=== PATIENT | female | born 1955 | race Caucasian/White ===

== ENCOUNTER 2023-08-16 05:40 | Inpatient (IN) ==
--- NOTE | 2023-07-29 15:49 | PAT Medication Instructions ---
Medication Instructions Date of Service July 29, 2023 Home Medications alendronate 70 mg tablet 70 mg PO WK atorvastatin 40 mg tablet (Lipitor) 40 mg PO HS calcium carbonate 500 mg-vitamin D3 3.125 mcg (125 unit) tablet 1 tab PO DAILY ibuprofen 200 mg capsule 200 mg PO Q6H PRN Pain levothyroxine 75 mcg tablet (Synthroid) 75 mcg PO PM omeprazole magnesium 20 mg tablet,delayed release (Prilosec OTC) 20 mg PO QAM oxycodone 5 mg capsule 5 mg PO TID Continue as directed alendronate 70 mg tablet 70 mg PO WK ASK your surgeon for instructions ibuprofen 200 mg capsule 200 mg PO Q6H PRN Pain DO NOT take the morning of surgery calcium carbonate 500 mg-vitamin D3 3.125 mcg (125 unit) tablet 1 tab PO DAILY Take morning of surgery With a small sip of water, OTHERWISE NOTHING TO EAT OR DRINK AFTER MIDNIGHT: omeprazole magnesium 20 mg tablet,delayed release (Prilosec OTC) 20 mg PO QAM oxycodone 5 mg capsule 5 mg PO TID Take evening before surgery atorvastatin 40 mg tablet (Lipitor) 40 mg PO HS evothyroxine 75 mcg tablet (Synthroid) 75 mcg PO PM oxycodone 5 mg capsule 5 mg PO TID Other Notes If you have any questions please call us at [phone] or [phone] or [phone] or [phone]
--- NOTE | 2023-08-04 12:20 | Anesthesiology Consultation ---
Date of Service August 04, 2023 Assessment & Plan (1) Encounter for pre-operative examination: - Infectious disease screening: Per assessment on 08/04/23: No known infectious disease contacts or current infectious disease symptoms. No noted recent Covid positive test result. - Awaiting surgeon-ordered PCP preop evaluation and preop CXR (Dr. Solorzano, appt/CXR done 08/03). Patient otherwise acceptable risk for surgery. Chart Review Chart Review: Patient seen in Pre Admission Testing Teaching & Discussion Pre-Anesthesia Teaching/Discussion Notes: Instructed NPO after midnight before surgery,except medications with 15 cc of water. Medication instructions provided according to the PAT guidelines. History Surgery Operation Date: 08/16/23 07:45 Proposed Procedures p L5-S1 Decompression and Fusion, Possible L4-L5, Spinal Cord Monitoring - George Dalal DO Height/Weight Height: 5 ft 4.5 in Weight: 70.3 kg Allergies Allergy/AdvReac Type Severity Reaction Status Date / Time No Known Allergies Allergy Verified 07/29/23 11:54 Medications Home Medications Medication Instructions Recorded Confirmed Last Taken alendronate 70 mg tablet 70 mg PO WK 07/29/23 07/29/23 Unknown atorvastatin 40 mg tablet (Lipitor) 40 mg PO HS 07/29/23 07/29/23 Unknown calcium carbonate 500 mg-vitamin 1 tab PO DAILY 07/29/23 07/29/23 Unknown D3 3.125 mcg (125 unit) tablet ibuprofen 200 mg capsule 200 mg PO Q6H PRN Pain 07/29/23 07/29/23 Unknown levothyroxine 75 mcg tablet 75 mcg PO PM 07/29/23 07/29/23 Unknown (Synthroid) omeprazole magnesium 20 mg 20 mg PO QAM 07/29/23 07/29/23 Unknown tablet,delayed release (Prilosec OTC) oxycodone 5 mg capsule 5 mg PO TID 07/29/23 07/29/23 Unknown Past Medical History Medical History Arthritis Chronic back pain Degenerative disc disease GERD (gastroesophageal reflux disease) History of COVID-2020 Hyperlipidemia Hypothyroidism Kidney stones hx, no recent issues Neuropathy left foot Osteoporosis Sciatic leg pain Spinal stenosis Exercise / Class Metabolic Activity II 4-5 Yardwork/Stairs/Walk up hill Past Family History Family History Brother Diabetes Brother Diabetes Sister Diabetes Sister Diabetes Past Surgical History Surgical History History of appendectomy History of breast biopsy benign History of cardiac cath 2012- no stents History of carpal tunnel release R/L History of cholecystectomy History of colonoscopy History of esophagogastroduodenoscopy (EGD) History of hysterectomy History of lithotripsy History of tooth extraction Nausea and vomiting after administration of anesthetic agent Single episode with lap najma S/P cervical spinal fusion Cervical flexion limitation, remaining ROM "good" per patient Past Anesthesia History No Hx of Anesthesia Complications and No Family Hx of Anesthesia Complications History of PONV No Hx of Motion Sickness and History of PONV (Single episode with lap najma) Social History Smoking Status: Current every day smoker Smoking cigarettes per day: 10 cigs/day Do You Dip or Chew Tobacco: No Hx Alcohol Use: No Hx Substance Use: No substance use type: former substance user Review of Systems Patient denies chest pain, shortness of breath, dyspnea on exertion, fever, chills, cough, wheezing, palpitations. Physical Exam Vital Signs VITALS BP 106/71 P 80 TEMP 98.7 SP02 95%RA RESP 16 PHYSICAL Mildly decreased cervical extension range of motion. Full TMJ range of motion. TMD 3 finger breaths Mallampati Score 2 Dentition: edentulous, upper/lower dentures Lungs: clear throughout to auscultation Cardiac: regular rate and rhythm, no murmurs noted Spine: normal Carotid arteries: negative bruit Extremities: no LE edema Lab Results Anesthesia Preop Results Results Anesthesia Widget: Blood Type O Negative 08/04/23 Antibody Screen NEGATIVE 08/04/23 Testing Laboratory Results 08/03/23 WBC 7.02 H/H 12.4/38.2 PLATELETS 330 SODIUM 141 POTASSIUM 3.6 CHLORIDE 108 CO2 26 BUN 19 CREATININE 0.80 GLUCOSE 84 PT 10.9 PTT 31.0 INR 0.97 UA negative (urine culture pending) Electrocardiogram Date: 08/04/23 NSR at 76bpm. Diffuse minor NS TWA.
[2023-08-16] MEDS ORDERED: MIDAZOLAM HCL 1 MG/ML 2ML VIAL ONE (06:38)
[2023-08-16] MEDS ORDERED: PROPOFOL IV EMULSION 10 MG/ML 20 ML VIAL IV ONE (06:38)
[2023-08-16] MEDS ORDERED: ROCURONIUM BROMIDE 10 MG/ML 5 ML VIAL IV ONE (06:38)
[2023-08-16] MEDS ORDERED: fentaNYL citrate PF 100 MCG/2 ML VIAL ONE (06:38)
[2023-08-16] MEDS ORDERED: LIDOCAINE 2% 2 ML VIAL/AMP(20MG/ML) INFIL ONE (06:38)
[2023-08-16] MEDS ORDERED: DEXAMETHASONE SOD INJ 4 MG/ML VIAL ONE (06:38)
[2023-08-16] MEDS ORDERED: ONDANSETRON INJ 2 MG/ML 2 ML VIAL ONE ×2 (06:38→09:35)
[2023-08-16] MEDS: LR 15ML/HR IV SCH (06:42)
[2023-08-16] MEDS: GABAPENTIN 300 MG CAP PO SCH (06:42)
[2023-08-16] MEDS: ACETAMINOPHEN 500 MG TAB PO SCH (06:42)
[2023-08-16] MEDS: CeleBREX 200 MG CAP PO SCH (06:42)
[2023-08-16] MEDS: LR 60ML/HR IV SCH (06:42)
[2023-08-16] MEDS ORDERED: SUGAMMADEX SODIUM 200 MG/2 ML VIAL IV ONE ×2 (07:14→09:57)
--- NOTE | 2023-08-16 07:43 | History & Physical Bridge Note ---
Date of Service August 16, 2023 History & Physical Bridge Note I have examined the patient, reviewed the History & Physical and in the interval since the performance of the History & Physical I have noted the following changes of clinical significance: no changes noted
--- NOTE | 2023-08-16 07:44 | History & Physical Report ---
Date of Service August 16, 2023 Assessment & Plan (1) Neurogenic claudication due to lumbar spinal stenosis: Plan: L5-S1 decompression and fusion possible L4-L5 History of Present Illness Chief Complaint: Back and leg pain Primary Care Provider: NO PCP This is a 67 female presents for chronic persistent back and leg pain after an extensive course of nonoperative care is here for surgical invention. Allergies Allergy/AdvReac Type Severity Reaction Status Date / Time No Known Allergies Allergy Verified 08/16/23 06:17 Home Medications Medication Instructions Recorded Confirmed Type alendronate 70 mg tablet 70 mg PO WK 07/29/23 08/16/23 History atorvastatin 40 mg tablet (Lipitor) 40 mg PO HS 07/29/23 08/16/23 History calcium carbonate 500 mg-vitamin 1 tab PO DAILY 07/29/23 08/16/23 History D3 3.125 mcg (125 unit) tablet ibuprofen 200 mg capsule 200 mg PO Q6H PRN Pain 07/29/23 08/16/23 History levothyroxine 75 mcg tablet 75 mcg PO PM 07/29/23 08/16/23 History (Synthroid) omeprazole magnesium 20 mg 20 mg PO QAM 07/29/23 08/16/23 History tablet,delayed release (Prilosec OTC) oxycodone 5 mg capsule 5 mg PO TID 07/29/23 08/16/23 History Past Med/Surg History Medical History Arthritis Chronic back pain Degenerative disc disease GERD (gastroesophageal reflux disease) History of COVID-2020 Hyperlipidemia Hypothyroidism Kidney stones hx, no recent issues Neuropathy left foot Osteoporosis Sciatic leg pain Spinal stenosis Surgical History History of appendectomy History of breast biopsy benign History of cardiac cath 2012- no stents History of carpal tunnel release R/L History of cholecystectomy History of colonoscopy History of esophagogastroduodenoscopy (EGD) History of hysterectomy History of lithotripsy History of tooth extraction Nausea and vomiting after administration of anesthetic agent Single episode with lap najma S/P cervical spinal fusion Cervical flexion limitation, remaining ROM "good" per patient Family History Brother Diabetes Brother Diabetes Sister Diabetes Sister Diabetes Social History Smoking Status: Current every day smoker Tobacco Type: Cigarettes Cigarettes Per Day: 10 cigs/day; Second Hand Exposure: No; Do You Dip or Chew Tobacco: No; Tobacco Cessation Education Requested by Patient: No Hx Alcohol Use: No Hx Substance Use: No Preferred Language: Albanian Communication Ability: Effective Prototyper Required: No Beliefs That Will Affect Care: None Current Living Situation: Family Other Information That Helps Us Care for You: No Feels Safe at Home: Yes Safety Concerns: Feels Safe At This Time Assistive Devices: Denture - Upper, Denture - Lower and Glasses Physical Exam Physical Exam: Patient is alert and oriented Heart regular rhythm Lungs clear Results & Data Results & Data Vital Signs (Past 12 Hours) Vital Signs Temp Pulse Resp BP Pulse Ox O2 Del Method 08/16/23 06:25 36.8 C 77 18 144/73 H 97 Room Air
[2023-08-16] MEDS: ceFAZolin 2000MG 2,000 MG/15 ML SYR IV SCH ×2 (07:53→15:56)
[2023-08-16] MEDS: ceFAZolin 330 MG/ML 1 GM VIAL ONE (08:33)
[2023-08-16] MEDS: BUPIVACAINE/EPINEPHRINE 0.5% MPF 1:200,000 30 ML VIAL ONE (08:33)
[2023-08-16] MEDS ORDERED: ePHEDrine sulfate 50 MG/5 ML SYR ONE (08:40)
[2023-08-16] MEDS ORDERED: ONDANSETRON INJ 2 MG/ML 2 ML VIAL IV PRN ×2 (09:04→13:00)
[2023-08-16] MEDS ORDERED: ePHEDrine sulfate 50 MG/ML AMP IV PRN (09:04)
[2023-08-16] MEDS ORDERED: HYDROmorphone INJ 1 MG/ML SYRINGE IV PRN ×2 (09:04→13:00)
[2023-08-16] MEDS ORDERED: ATROPINE SULFATE 0.1 MG/ML 10ML SYR IV PRN (09:04)
[2023-08-16] MEDS: FLOSEAL HEMOSTATIC MATRIX 10ML TOP ONE (09:29)
--- NOTE | 2023-08-16 09:43 | Operative Report ---
Post Operative Report Pre & Post Diagnosis Operation Date: 08/16/23 07:45 Pre-Op Diagnosis: Neurogenic Claudication due to Lumbar Spinal Stenosis Spondylolisthesis L5-S1 Post-Op Diagnosis: Same I identified the patient and participated in the time-out.: Yes Procedure Operation Date: 08/16/23 07:45 Actual Procedures #1 lumbar decompression bilaterally facetectomies and foraminotomies L4-L5 L5- S1. #2 posterior spinal fusion L4-S1. #3 placement posterior instrumentation L4-S1. #4 interbody fusion L4-L5 L5-S1. #5 history of Spira 10 x 26 mm at L4-5 and 12 x 26 mm x 2 at L5-S1. #6 placement locally harvested morselized autograft in the posterior gutters. #7 placement of infuse collagen sponge combined with Koros bone graft in the posterior gutters and course of the interbody space. Surgeon George Dalal DO Percussion Welding Machine Operator Antonia Montenegro Estimated Blood Loss 100 Findings Consistent with Post-Op Diagnosis Specimens None Indications This is a 67-year-old female presents above-mentioned diagnosis after failing course of nonoperative care is here for surgical intervention. Description of Procedure Patient met with identified informed consent obtained. Patient was then taken to the operative suite underwent patient placed in a prone position the [place] table top [place] frame. All bony promises well-padded eyes inspected to ensure no external pressure placed upon them. This point lumbar spine was prepped and draped in a sterile fashion. Sharp dissection with the assistance of Bovie cautery form down to and exposing the lamina transverse processes of L4-5 and the sacral ala bilaterally. Obvious bilateral pars defect noted at L5. Complete laminectomy L5 and L4 was performed including bilaterally facetectomies and foraminotomies addressing severe spinal stenosis. Pedicle screws were then placed in L4-L5 and S1 levels bilaterally with assistance of fluoroscopy in the process michelle placed. By way of a transforaminal approach on the right at discectomy of L5-S1 was performed endplates guarded to subcortical mean bone and a 12 x 26 mm Spira cage filled with Koros tapped in position. Then proceeded to the left transforaminal region at L5-S1 completed discectomy curetted the endplates to subcortical bleeding bone and placed a second 12 x 26 mm Spira cage with Koros into position. Then proceeded to L4-[address] of transforaminal approach and right complete discectomy performed endplates guarded to subcortical mean bone and a 10 x 26 mm Spira cage with Koros tapped in position. The rods were then compressed locked in final position bilaterally. The transverse processes of L4-5 and sacral ala burred to subcortical and bone. Infuse collagen sponge, with Koros and local autograft placed in the posterior gutters. 15 round EUN drain inserted. The incision was then closed with 1 Vicryl and fascia 2-0 Vicryl subcutaneously and final for final skin closure. Steri-Strips sterile dressings placed. Patient waken and taken to PACU in stable condition. Please note spinal cord monitoring was utilized at the procedure no changes noted. Lastly Antonia Montenegro was present at the entire surgery involved in patient positioning complex portion of the surgery and final skin closure. I attest to the content of the Intraoperative Record and any orders documented therein. Any exceptions are noted below.
[2023-08-16] MEDS: fentaNYL citrate PF 100 MCG/2 ML VIAL IV PRN (10:05)
--- NOTE | 2023-08-16 10:14 | Fluoroscopy Report ---
FL lumbar spine 2-3V CLINICAL HISTORY: L5-S1 DECOMPRESSION AND FUSION, POSSIBLE L4-L5 COMPARISON STUDY: None. FLUOROSCOPY TIME: 28 seconds. FLUOROSCOPY IMAGES: 2 Ka,r: 24.1 mGy FINDINGS: Posterior decompression and fusion from L4 through S1 with pedicle screws and rods. The jessica dware appears intact. Disc spacers are in place. IMPRESSION: Fluoroscopic assistance as above. ACT 112: Negative or not required by law. Electronically signed by: Chang Landers M.D. 08/16/2023 10:12 AM
--- NOTE | 2023-08-16 11:19 | Anesthesiology Progress Note ---
Date of Service August 16, 2023 Anesthesia Post Procedure Vital Signs Vital Signs: Temp Pulse Pulse Resp BP Pulse Ox O2 Del Method 08/16/23 11:10 97.5 F L 67 18 102/67 99 Room Air 08/16/23 11:00 97.5 F L 67 12 85/55 L 96 Room Air 08/16/23 10:50 70 15 92/41 L 95 Room Air 08/16/23 10:40 68 12 87/49 L 95 Room Air 08/16/23 10:30 74 17 84/37 L 92 Room Air 08/16/23 10:20 71 14 101/52 L 97 Oxymask 08/16/23 10:10 79 19 104/60 100 Oxymask 08/16/23 10:00 76 17 104/63 99 Oxymask 08/16/23 09:53 97.2 F L 75 16 120/82 100 Oxymask 08/16/23 06:25 98.2 F 77 18 144/73 H 97 Room Air O2 Flow Rate 08/16/23 11:10 08/16/23 11:00 08/16/23 10:50 08/16/23 10:40 08/16/23 10:30 08/16/23 10:20 1 08/16/23 10:10 3 08/16/23 10:00 3 08/16/23 09:53 5 08/16/23 06:25 Pain Intensity Back: Pain Intensity: 5 Transfer of Care Handoff Completed per policy Notes Mental Status: alert / awake / arousable and participated in evaluation Patient Amnestic to Procedure: Yes Nausea / Vomiting: adequately controlled Pain: adequately controlled Airway Patency, RR, SpO2: stable & adequate BP & HR: stable & adequate Hydration State: stable & adequate Anesthetic Complications: no major complications apparent and Pt Satisfied with anesthetic care
[2023-08-16] MEDS ORDERED: PROMETHAZINE HCL 12.5 MG in SODIUM CHLORIDE 0.9% 50 ML IV PRN (13:00)
[2023-08-16] MEDS ORDERED: diphenhydrAMINE Capsule 25 MG CAP PO PRN (13:00)
[2023-08-16] MEDS ORDERED: hydrOXYzine HCl 25 MG TAB PO PRN (13:00)
[2023-08-16] MEDS ORDERED: DO NOT ADMINISTER FLU VACCINE PRN (13:00)
[2023-08-16] MEDS ORDERED: bisacodyL 10 MG SUPP PR PRN (13:00)
[2023-08-16] MEDS ORDERED: ACETAMINOPHEN 500 MG TAB PO PRN (13:00)
[2023-08-16] MEDS ORDERED: ACETAMINOPHEN 1,000 MG/100 ML VIAL IV PRN (13:00)
[2023-08-16] MEDS ORDERED: FAMOTIDINE 20 MG TAB PO PRN (13:00)
[2023-08-16] MEDS ORDERED: DO NOT ADMINISTER PNEUMOCOCCAL VACCINE PRN (13:00)
[2023-08-16] MEDS ORDERED: LORazepam 0.5 MG TAB PO PRN (13:00)
[2023-08-16] MEDS ORDERED: traMADol HCL 50 MG TABLET PO PRN (13:00)
[2023-08-16] MEDS ORDERED: LORazepam 0.5 MG in SYRINGE 0.25 ML IV PRN (13:00)
[2023-08-16] MEDS ORDERED: METOCLOPRAMIDE HCL INJ 5 MG/ML 2 ML VIAL IV PRN (13:00)
[2023-08-16] MEDS ORDERED: ONDANSETRON 4 MG OD TAB PO PRN (13:00)
[2023-08-16] MEDS ORDERED: NALOXONE HCL 0.4 MG/1 ML VIAL/CARP IV PRN (13:00)
[2023-08-16] MEDS ORDERED: ALUMINUM/MAGNESIUM SUSP 30 ML UDC PO PRN (13:00)
[2023-08-16] MEDS ORDERED: SOD PHOSPHATE/SOD BIPHOSPHATE ENEMA 132 ML BTL PR PRN (13:00)
[2023-08-16] MEDS: oxyCODONE HCL IR 5 MG TAB (IMMEDIATE RELEASE) PO PRN (13:20)
[2023-08-16] MEDS: LACTATED RINGER'S 1,000 ML IV SCH (13:20)
--- NOTE | 2023-08-16 14:47 | Hospitalist Consultation ---
Date of Consultation August 16, 2023 Assessment & Plan (1) S/P spinal surgery: (2) Neurogenic claudication due to lumbar spinal stenosis: (3) GERD (gastroesophageal reflux disease): (4) Hyperlipidemia: (5) Hypothyroidism: Plan This is a 67yo with a PMH dyslipidemia, hypothyroidism and other medical problem lised below who is POD#0 s/p lumbar decompression bilaterally facetectomies and foraminotomies L4-L5 L5-S1 and posterior spinal fusion L4-S1 by Dr. Dalal. S/p spinal surgery POD#0 s/p lumbar decompression bilaterally facetectomies and foraminotomies L4- L5 L5-S1 and posterior spinal fusion L4-S1 by Dr. Dalal Per ortho for pain control, wound care, anticoagulation and activities Monitor H&H (EBL 100ml, pre-op hgb 12.4), continue incentive spirometry, PT/OT when appropriate Hypothyroidism Chronic, stable. Continue levothyroxine Hyperlipidemia Recent abnormal lipid panel, started on statin HS. Continue Tobacco use disorder Smoking 1/2 ppd. Discussed importance of cessation in regards to optimal healing. Nicotine patch ordered DVT Ppx: SCDs Code status: FULL PCP: Rashad ([facility]) Dispo: Per primary service Patient seen in collaboration with Dr. Riggs. Please see addendum. I spent a total of 60 minutes coordinating, documenting, and providing care for this patient excluding time spent in the performance of separately billed services. Supervising Physician Co-Signing Physician Notes Attending addendum: The patient was seen and examined in medical floor She is status post L4-S1 decompression and fusion Complains a lot of pain at the lower back without radiation Denies any other significant symptoms On examination Lying in bed comfortably Hemodynamically stable blood pressure on the lower side at 96/64 Chestclear to auscultate bilaterally Heart-S1-S2, regular Abdomen-benign Extremities-negative for any edema Her admission labs, imaging studies and EKG reviewed Status post L4-S1 decompression fusion remains stable Minimal pain and management will be as per orthopedic surgeon Remains medically stable Agree with assessment plan as outlined above by FAZAL Barnett DR History of Present Illness Reason for Consultation: post op med mgmt Attending Physician: George Dalal DO History of Present Illness This is a 67yo with a PMH dyslipidemia, hypothyroidism, tobacco use and other medical problem listed below who is POD#0 s/p lumbar decompression bilaterally facetectomies and foraminotomies L4-L5 L5-S1 and posterior spinal fusion L4-S1 by Dr. Dalal. Patient is feeling well postoperatively with some surgical site discomfort. Denies any numbness or pain in bilateral lower extremities. Denies any postop nausea, vomiting, chest pain shortness of breath. Resting comfortably. No fever, chills, lightheadedness, abdominal pain, dysuria, diarrhea or constipation. Receives primary care in located within [facility] through [facility]. Does smoke 10 cigarettes daily, which is a drastic decrease from her previous. Interested in a nicotine patch. Allergies Allergy/AdvReac Type Severity Reaction Status Date / Time No Known Allergies Allergy Verified 08/16/23 06:17 Home Medications Medication Instructions Recorded Confirmed Type alendronate 70 mg tablet 70 mg PO WK 07/29/23 08/16/23 History atorvastatin 40 mg tablet (Lipitor) 40 mg PO HS 07/29/23 08/16/23 History calcium carbonate 500 mg-vitamin 1 tab PO DAILY 07/29/23 08/16/23 History D3 3.125 mcg (125 unit) tablet ibuprofen 200 mg capsule 200 mg PO Q6H PRN Pain 07/29/23 08/16/23 History levothyroxine 75 mcg tablet 75 mcg PO PM 07/29/23 08/16/23 History (Synthroid) omeprazole magnesium 20 mg 20 mg PO QAM 07/29/23 08/16/23 History tablet,delayed release (Prilosec OTC) oxycodone 5 mg capsule 5 mg PO TID 07/29/23 08/16/23 History oxycodone 5 mg tablet 5 mg PO Q6H PRN pain #30 tabs 08/16/23 Rx tramadol 50 mg tablet 50 mg PO Q6H PRN pain, moderate 08/16/23 Rx #30 tabs Patient History Medical History Arthritis Spinal stenosis Kidney stones hx, no recent issues Neuropathy left foot History of COVID-2020 Sciatic leg pain Degenerative disc disease Chronic back pain Osteoporosis Hypothyroidism Hyperlipidemia GERD (gastroesophageal reflux disease) Surgical History History of esophagogastroduodenoscopy (EGD) Nausea and vomiting after administration of anesthetic agent Single episode with lap najma History of hysterectomy History of breast biopsy benign History of carpal tunnel release R/L History of lithotripsy History of colonoscopy History of cholecystectomy History of appendectomy History of tooth extraction S/P cervical spinal fusion Cervical flexion limitation, remaining ROM "good" per patient History of cardiac cath 2012- no stents Family History Brother Diabetes Brother Diabetes Sister Diabetes Sister Diabetes Social History Smoking Status: Current every day smoker Tobacco Type: Cigarettes Cigarettes Per Day: 10 cigs/day; Second Hand Exposure: No; Do You Dip or Chew Tobacco: No; Tobacco Cessation Education Requested by Patient: No Hx Alcohol Use: No Hx Substance Use: No Preferred Language: Marshallese Communication Ability: Effective Career Guidance Technician Required: No Beliefs That Will Affect Care: None Current Living Situation: Family Other Information That Helps Us Care for You: No Feels Safe at Home: Yes Safety Concerns: Feels Safe At This Time Assistive Devices: Walker Review of Systems Review of Systems: At least ten systems reviewed and negative except as noted in the HPI. Physical Exam Physical Exam: General Appearance: WD/WN, vitals as above, NAD, sitting up in bed, pleasant, conversing easily Head: normocephalic, atraumatic Eyes: normal inspection, PERRL, conjunctivae normal, anicteric sclerae ENT: external ear and nose normal, oropharynx normal Neck: normal visual inspection, trachea midline, no thyromegaly Respiratory: normal respiratory effort, lungs clear to auscultation, no wheeze, rales, rhonchi. No accessory muscle use Cardiovascular: regular rate, rhythm, normal peripheral pulses, no BLE edema Abdomen/GI: normal bowel sounds, soft, nontender, no hepatosplenomegaly Extremities/Musculoskeletal: no cyanosis or clubbing, extremities motor strength 5/5, + SCDs Neurologic: PERRL, EOMI, CN's II-XI intact bilaterally and moves all extremit ies Psychiatric: A+Ox3, euthymic affect Skin: no rashes, normal color, warm/dry Results & Data Results & Data Vital Signs (Past 12 Hours) Vital Signs Temp Pulse Pulse Resp BP Pulse Ox O2 Del Method 08/16/23 13:49 74 18 113/68 97 Room Air 08/16/23 12:30 36.5 C 81 16 94/62 L 96 Room Air 08/16/23 11:50 71 18 104/67 98 Room Air 08/16/23 11:20 36.4 C L 74 14 99/57 L 97 Room Air 08/16/23 11:10 36.4 C L 67 18 102/67 99 Room Air 08/16/23 11:00 36.4 C L 67 12 85/55 L 96 Room Air 08/16/23 10:50 70 15 92/41 L 95 Room Air 08/16/23 10:40 68 12 87/49 L 95 Room Air 08/16/23 10:30 74 17 84/37 L 92 Room Air 08/16/23 10:20 71 14 101/52 L 97 Oxymask 08/16/23 10:10 79 19 104/60 100 Oxymask 08/16/23 10:00 76 17 104/63 99 Oxymask 08/16/23 09:53 36.2 C L 75 16 120/82 100 Oxymask 08/16/23 06:25 36.8 C 77 18 144/73 H 97 Room Air O2 Flow Rate 08/16/23 13:49 08/16/23 12:30 08/16/23 11:50 08/16/23 11:20 08/16/23 11:10 08/16/23 11:00 08/16/23 10:50 08/16/23 10:40 08/16/23 10:30 08/16/23 10:20 1 08/16/23 10:10 3 08/16/23 10:00 3 08/16/23 09:53 5 08/16/23 06:25 Diagnostic Findings Lumbar Spine X-Ray 08/16/23 07:45 FL lumbar spine 2-3V CLINICAL HISTORY: L5-S1 DECOMPRESSION AND FUSION, POSSIBLE L4-L5 COMPARISON STUDY: None. FLUOROSCOPY TIME: 28 seconds. FLUOROSCOPY IMAGES: 2 Ka,r: 24.1 mGy FINDINGS: Posterior decompression and fusion from L4 through S1 with pedicle screws and rods. The hardware appears intact. Disc spacers are in place. IMPRESSION: Fluoroscopic assistance as above. ACT 112: Negative or not required by law. Electronically signed by: Chang Landers M.D. 08/16/2023 10:12 AM
[2023-08-16] MEDS: NICOTINE 14 MG/24 HR PATCH TD SCH (16:41)
[2023-08-16] MEDS: DOCUSATE SODIUM/SENNA 50/8.6MG TAB PO SCH (20:12)
[2023-08-16] MEDS: ATORVASTATIN 40 MG TAB PO SCH (20:12)
[2023-08-16] MEDS: LEVOTHYROXINE SODIUM 75 MCG TABLET PO SCH (20:12)
[2023-08-17] MEDS: POLYETHYLENE (MIRALAX) 17 GM PACK PO SCH (05:35)
[2023-08-17] MEDS: HYDROmorphone INJ 0.5 MG/0.5 ML SYR IV PRN (05:38)
[2023-08-17 06:32] LABS: Basophils # (auto) 0.02 K/uL (0.00-0.20); Basophils % (auto) 0.1 %; Eosinophils # (auto) 0.09 K/uL (0.00-0.50); Eosinophils % (auto) 0.7 %; Hematocrit (blood only) 29.5 % (37.0-47.0); Hemoglobin 9.6 g/dl (12.0-16.0); Immature Granulocytes # (auto) 0.07 K/uL (0.01-0.20); Immature Granulocytes % (auto) 0.5 %; Lymphocytes # (auto) 2.89 K/uL (1.20-3.40); Lymphocytes % (auto) 21.2 %; Mean Corpuscular Hemoglobin 29.1 pg (25.0-34.0); Mean Corpuscular Hgb Conc 32.5 g/dL (32.0-36.0); Mean Corpuscular Volume 89.4 fL (80.0-100.0); Mean Platelet Volume 9.8 fL (9.4-12.4); Monocytes # (auto) 0.89 K/uL (0.11-0.59); Monocytes % (auto) 6.5 %; Neutrophils # (auto) 9.66 K/uL (1.40-6.50); Platelet Count 285 K/uL (130-400); RDW Coefficient of Variation 13.8 % (11.5-14.5); RDW Standard Deviation 45.2 fL (36.4-46.3); White Blood Count 13.62 K/ul (4.8-10.8)
[2023-08-17 06:58] LABS: Calcium 8.8 mg/dl (8.6-10.3); Creatinine Clr Calc Pharmacy 63.1 ml/min; Est GFR (African American) 83.4 ml/min; Est GFR (Non-African American) 71.9 ml/min; Potassium 3.8 mmol/L (3.5-5.1)
--- NOTE | 2023-08-17 08:50 | Orthopedic Progress Note ---
Date of Service August 17, 2023 Assessment & Plan (1) Neurogenic claudication due to lumbar spinal stenosis: Plan: Mara is postoperative day 1 status post L4-S1 decompression instrumented fusion. She will start physical therapy today. Ambulate ad lenora. Maintain EUN drain. DVT prophylaxis is in the form teds and SCDs. Work on bowel regimen. Continue with pain control. Anticipate discharge home later on this week Admission and Anticipated Discharge Date Admission Date: August 16, 2023 Subjective Mara is postoperative day 1 status post L4-S1 decompression and instrumented fusion. Has complaints of back pain only. Radicular leg pain has resolved. She had an uneventful evening. EUN drain output last shift was 70 cc. H&H this morning are 9.6 and 29.5 respectively. No other complaints Review of Systems Review of Systems: All systems reviewed & are unremarkable except as noted in HPI & below Physical Exam Physical Exam: She is alert and oriented x 3 in no acute distress She sitting in a chair Lumbar dressing is clean dry and intact with functioning EUN drain Calf soft nontender bilateral lower extremities Strength intact bilateral lower extremities Results & Data Vital Signs (Past 12 Hours) Vital Signs Temp Pulse Resp BP Pulse Ox O2 Del Method 08/17/23 07:47 36.7 C 83 16 93/60 L 96 Room Air 08/17/23 03:08 36.6 C 84 16 113/69 97 Room Air 08/16/23 23:03 36.8 C 76 17 96/62 L 96 Room Air
[2023-08-17] MEDS: PANTOprazole 40 MG TAB PO SCH (09:24)
[2023-08-17] MEDS: dexAMETHasone 6 MG in SYRINGE 0 ML IV SCH (09:25)
[2023-08-17] MEDS: CALCIUM 600MG + VIT D 400 IU TAB PO SCH (09:48)
[2023-08-17 14:32] LABS: Hematocrit (blood only) 31.1 % (37.0-47.0); Hemoglobin 9.8 g/dl (12.0-16.0)
--- NOTE | 2023-08-17 16:49 | Hospitalist Progress Note ---
Date of Service August 17, 2023 Assessment & Plan (1) S/P spinal surgery: (2) Neurogenic claudication due to lumbar spinal stenosis: (3) GERD (gastroesophageal reflux disease): (4) Hyperlipidemia: (5) Hypothyroidism: Plan This is a 67yo with a PMH dyslipidemia, hypothyroidism and other medical problem lised below who is POD#0 s/p lumbar decompression bilaterally facetectomies and foraminotomies L4-L5 L5-S1 and posterior spinal fusion L4-S1 by Dr. Dalal. S/p spinal surgery POD#1 s/p lumbar decompression bilaterally facetectomies and foraminotomies L4- L5 L5-S1 and posterior spinal fusion L4-S1 by Dr. Dalal Per ortho for pain control, wound care, anticoagulation and activities Monitor H&H (EBL 100ml, pre-op hgb 12.4), continue incentive spirometry, PT/OT when appropriate Acute blood loss anemia and hemodilution related anemia: Preoperative hemoglobin of 12.4, postoperatively 9.6. Patient with no chest pain/dizziness/lightheadedness/weakness. Monitor H&H, currently no indication for transfusion. Hypothyroidism Chronic, stable. Continue levothyroxine Hyperlipidemia Recent abnormal lipid panel, started on statin HS. Continue Tobacco use disorder Smoking 1/2 ppd. Discussed importance of cessation in regards to optimal healing. Nicotine patch ordered DVT Ppx: SCDs Code status: FULL PCP: Rashad ([facility]) Dispo: Per primary service Admission and Anticipated Discharge Date Admission Date: August 16, 2023 Subjective Patient was seen and examined at bedside. Patient was lying in bed, on room air, NAD, resting comfortably. Patient reports RLE radicular symptoms improvement, reports operative site pain fairly under control. Patient is eating okay, has normal bowel, is moving gas. Patient denies other ROS. Physical Exam Physical Exam: General Appearance: WD/WN, vitals as above, NAD, sitting up in bed, pleasant, conversing easily Head: normocephalic, atraumatic Eyes: normal inspection, PERRL, conjunctivae normal, anicteric sclerae ENT: external ear and nose normal, oropharynx normal Neck: normal visual inspection, trachea midline, no thyromegaly Respiratory: normal respiratory effort, lungs clear to auscultation, no wheeze, rales, rhonchi. No accessory muscle use Cardiovascular: regular rate, rhythm, normal peripheral pulses, no BLE edema Abdomen/GI: normal bowel sounds, soft, nontender, no hepatosplenomegaly Extremities/Musculoskeletal: no cyanosis or clubbing, extremities motor strength 5/5, + SCDs Neurologic: PERRL, EOMI, CN's II-XI intact bilaterally and moves all extremities Psychiatric: A+Ox3, euthymic affect Skin: no rashes, normal color, warm/dry Results & Data Results & Data Vital Signs (Past 12 Hours) Vital Signs Temp Pulse Resp BP Pulse Ox O2 Del Method 08/17/23 14:46 37.1 C 78 16 101/64 92 Room Air 08/17/23 07:47 36.7 C 83 16 93/60 L 96 Room Air
[2023-08-18] MEDS: MAGNESIUM HYDROXIDE SUSP 30 ML UDC PO PRN (05:20)
[2023-08-18 06:15] LABS: Hematocrit (blood only) 29.1 % (37.0-47.0); Hemoglobin 9.1 g/dl (12.0-16.0); Mean Corpuscular Hemoglobin 28.4 pg (25.0-34.0); Mean Corpuscular Hgb Conc 31.3 g/dL (32.0-36.0); Mean Corpuscular Volume 90.9 fL (80.0-100.0); Mean Platelet Volume 9.8 fL (9.4-12.4); Platelet Count 264 K/uL (130-400); RDW Coefficient of Variation 13.7 % (11.5-14.5); RDW Standard Deviation 45.9 fL (36.4-46.3); White Blood Count 12.49 K/ul (4.8-10.8)
[2023-08-18 06:38] LABS: BUN Creatinine Ratio 17.6 (10-20); Calcium 8.9 mg/dl (8.6-10.3); Creatinine Clr Calc Pharmacy 71.6 ml/min; Est GFR (African American) 97.2 ml/min; Est GFR (Non-African American) 83.8 ml/min; Potassium 3.7 mmol/L (3.5-5.1)
--- NOTE | 2023-08-18 08:53 | Orthopedic Progress Note ---
Date of Service August 18, 2023 Assessment & Plan (1) Neurogenic claudication due to lumbar spinal stenosis: Plan: At this time continue physical therapy monitor EUN output anticipate discharge home tomorrow. Admission and Anticipated Discharge Date Admission Date: August 16, 2023 Subjective Back pain controlled leg pain markedly improved Physical Exam Physical Exam: Patient is currently in bed. She is comfortable. Is consented testing. Results & Data Vital Signs (Past 12 Hours) Vital Signs Temp Pulse Resp BP Pulse Ox O2 Del Method 08/18/23 07:55 37 C 90 16 111/69 95 Room Air
--- NOTE | 2023-08-18 12:19 | Hospitalist Progress Note ---
Date of Service August 18, 2023 Assessment & Plan (1) S/P spinal surgery: (2) Neurogenic claudication due to lumbar spinal stenosis: (3) GERD (gastroesophageal reflux disease): (4) Hyperlipidemia: (5) Hypothyroidism: Plan This is a 67yo with a PMH dyslipidemia, hypothyroidism and other medical problem lised below who is POD#0 s/p lumbar decompression bilaterally facetectomies and foraminotomies L4-L5 L5-S1 and posterior spinal fusion L4-S1 by Dr. Dalal. S/p spinal surgery POD#2 s/p lumbar decompression bilaterally facetectomies and foraminotomies L4- L5 L5-S1 and posterior spinal fusion L4-S1 by Dr. Dalal Per ortho for pain control, wound care, anticoagulation and activities Monitor H&H (EBL 100ml, pre-op hgb 12.4), continue incentive spirometry, PT/OT when appropriate Acute blood loss anemia and hemodilution related anemia: Preoperative hemoglobin of 12.4, postoperatively 9.6. Patient with no chest pain/dizziness/lightheadedness/weakness. Monitor H&H, currently no indication for transfusion. Hypothyroidism Chronic, stable. Continue levothyroxine Hyperlipidemia Recent abnormal lipid panel, started on statin HS. Continue Tobacco use disorder Smoking 1/2 ppd. Discussed importance of cessation in regards to optimal healing. Nicotine patch ordered DVT Ppx: SCDs Code status: FULL PCP: Rashad ([facility]) Dispo: Per primary service Admission and Anticipated Discharge Date Admission Date: August 16, 2023 Subjective Patient was seen and examined at bedside. Patient was lying in bed, on room air, NAD, resting comfortably. Patient reports RLE radicular symptoms improvement, reports operative site pain fairly under control. Patient is eating okay, has not moved bowel, is moving gas. Patient denies other ROS. Physical Exam Physical Exam: General Appearance: WD/WN, vitals as above, NAD, sitting up in bed, pleasant, conversing easily Head: normocephalic, atraumatic Eyes: normal inspection, PERRL, conjunctivae normal, anicteric sclerae ENT: external ear and nose normal, oropharynx normal Neck: normal visual inspection, trachea midline, no thyromegaly Respiratory: normal respiratory effort, lungs clear to auscultation, no wheeze, rales, rhonchi. No accessory muscle use Cardiovascular: regular rate, rhythm, normal peripheral pulses, no BLE edema Abdomen/GI: normal bowel sounds, soft, nontender, no hepatosplenomegaly Extremities/Musculoskeletal: no cyanosis or clubbing, extremities motor strength 5/5, + SCDs Neurologic: PERRL, EOMI, CN's II-XI intact bilaterally and moves all extremities Psychiatric: A+Ox3, euthymic affect Skin: no rashes, normal color, warm/dry Results & Data Results & Data Vital Signs (Past 12 Hours) Vital Signs Temp Pulse Resp BP Pulse Ox O2 Del Method 08/18/23 07:55 37 C 90 16 111/69 95 Room Air
[2023-08-19 06:58] LABS: Hematocrit (blood only) 30.7 % (37.0-47.0); Hemoglobin 9.7 g/dl (12.0-16.0); Mean Corpuscular Hemoglobin 28.3 pg (25.0-34.0); Mean Corpuscular Hgb Conc 31.6 g/dL (32.0-36.0); Mean Corpuscular Volume 89.5 fL (80.0-100.0); Mean Platelet Volume 9.9 fL (9.4-12.4); Platelet Count 301 K/uL (130-400); RDW Coefficient of Variation 13.8 % (11.5-14.5); RDW Standard Deviation 45.1 fL (36.4-46.3); Red Blood Count 3.43 M/uL (4.20-5.40); White Blood Count 14.36 K/ul (4.8-10.8)
[2023-08-19 07:25] LABS: BUN Creatinine Ratio 19.2 (10-20); Calcium 9.5 mg/dl (8.6-10.3); Creatinine Clr Calc Pharmacy 67.9 ml/min; Est GFR (African American) 91.2 ml/min; Est GFR (Non-African American) 78.7 ml/min; Potassium 3.9 mmol/L (3.5-5.1)
--- NOTE | 2023-08-19 08:29 | Discharge Summary ---
Date of Service August 19, 2023 Admission HPI Per Admitting Provider This is a 67 female presents for chronic persistent back and leg pain after an extensive course of nonoperative care is here for surgical invention. Principal Diagnosis Lumbar spinal stenosis with neurogenic claudication Discharge Data Allergies Allergy/AdvReac Type Severity Reaction Status Date / Time No Known Allergies Allergy Verified 08/16/23 06:17 Consultations 08/16/23 13:00 Consult Hospitalist Routine Procedures Performed Operation Date: 08/16/23 07:45 Actual Procedures p L4-S1 Decompression and Fusion, Spinal Cord Monitoring(Not Applicable) - George Dalal DO Ordered Studies 08/16/23 07:45 [place] lumbar spine 2-3V Routine Hospital Course (1) Neurogenic claudication due to lumbar spinal stenosis: Patient went lumbar decompression fusion tolerated as well as taken to the orthopedic floor postoperative. Postop patient progressed appropriately. Leg pain improved. EUN drain decreasing appropriate. Subsidy discharged home. Discharge orders and instructions found in chart for further review. Total Time Total Time Spent Total Time Spent (In Minutes): 20 minutes Discharge Plan Discharge Items Patient Disposition: Home - Self-Care Reason For Visit: Spondylolithesis, Lumbar Region, Lumbar Disc Disea Discharge Diagnosis: Lumbar spinal stenosis with neurogenic claudication Activity: As commented below Non-emergency contact: Primary Care Provider Call non-emergency contact if: you have any medication questions Follow-up/Referrals: George Solorzano D.O. [Primary Care Provider] - Diet: Regular Addtl Attending Provider Instructions: ACTIVITY RECOMMENDATIONS: SELF CARE INSTRUCTIONS AFTER THORACIC/LUMBAR FUSIONS 1. You may walk to your tolerance. It is good exercise for your legs and back. Expect some back and intermittent leg aches and pains. 2. You may perform "counter-top" level activities (make a sandwich, dc with a project, etc.). 3. No bending or lifting of more than 10 pounds or back twisting of any nature (roll like a log when turning in bed). 4. You may ride in a car for 20-30 minutes at a time. No driving until after your first visit with your doctor. 5. Frequent changes of position and restricting sitting to 30 minutes at a time will help limit the amount of back spasms and stiffness you may experience. 6. You may discontinue the use of ambulatory aids (cane, crutches, etc.) once your strength and confidence allow. 7. You may child support investigator the shower and let water strike your incision when you arrive home at least once daily. Do not take a tub bath, sit in a hot tub or go into a swimming pool until after your first recheck in the office. SPECIAL CARE INSTRUCTIONS: VERY IMPORTANT TO READ AND REVIEW A. Your surgical incision has been closed with a cosmetic suture under the skin that will dissolve in about 6 weeks. In 14 days, you can use a pair of clean scissors and cut the suture that is left outside of the skin at the ends of your incision. 1. The small skin tapes can be removed 7 days after surgery if they have not fallen off by that point. 2. You may keep the wound open to air as much as possible to promote healing after post-op day number 5 unless told otherwise by your doctor. 3. If you think the wound looks like it is becoming infected (redness or worsening drainage) and/or you are experiencing fever, chill or worsening back pain and muscle spasms, contact the office so that we may evaluate you as soon as possible. B. Complications are uncommon, but please contact us if you have any signs or symptoms of: 1. wound infection (fever higher than 102.5 degrees F, redness, separation of wound, drainage, or increasing pain from the incision) 2. blood clots in legs (pain, swelling, redness and warmth in legs) 3. urinary tract infection (fever higher than 102.5 degrees F, burning upon urination or increased frequency of urination) 4. nerve problems (inability to walk on your toes or heels, numbness, loss of bowel or bladder control) 5. any other symptoms that concern you C. Please call the office at if you have any concerns or questions about your operation or recovery. D. No smoking! Smoking drastically decreases the chance of a solid fusion. E. Do not take any anti-inflammatory medications (Indocin, Advil, Motrin, Aspir in, Naprosyn, etc.) as these may inhibit the chance of a solid fusion. Tylenol is okay to take for pain. MANAGING PAIN AFTER SPINAL SURGERY 1. Narcotic medication is intended for short-term use and will be provided for surgical pain. Surgical pain usually lasts for a period of 4-6 weeks. Narcotic medication includes Percocet, Vicodin, Darvocet, Tylenol #3 or Lortab. 2. Longer-term pain is more appropriately treated with non-narcotic medication such as Tylenol ES. 3. Muscle spasm is not appropriately treated with narcotics. Muscle relaxers such as Soma, Flexeril or Skelaxin can be used along with Tylenol ES. 4. Remember that we all live with some "aches and pains". This is not unusual or uncommon after an injury or as we get older. a. Back pain is expected and may include muscle spasms for 4 to 6 weeks after surgery. The pain should gradually improve. If the pain worsens for no apparent reason, please contact the office. b. Intermittent leg pain may also be experienced and should not be concerned about unless it worsens for no apparent reason. If so, please contact the office. 5. We will provide appropriate medication within the normal guidelines of their prescribed use. We will also be very cautious and aware of potential abuse and extended duration of patients' medication needs. a. Pain medications are for your comfort and to assist with sleep and rest so that the tissue can heal. They are not provided in order to return to normal activity and should not be used through the day. To do so or worsening pain at night can result from ongoing tissue damage and development of tolerance to the prescribed medicine. 6. Please allow 2-3 days to process refills. Prescriptions will not be mailed but must be picked up at the office. FOLLOW UP VISIT: Keep your scheduled follow-up appointment. Any questions, please call the office at . Pending Studies at Discharge: No Stand-Alone Forms: My [facility], Smoking Cessation Medications and [place] Order Prescriptions: New tramadol 50 mg tablet 50 mg PO Q6H PRN (Reason: pain, moderate) Qty: 30 0RF oxycodone 5 mg tablet 5 mg PO Q6H PRN (Reason: pain) Qty: 30 0RF Continued atorvastatin [Lipitor] 40 mg Tablet 40 mg PO HS alendronate 70 mg Tablet 70 mg PO WK Patient Comments: fridays levothyroxine [Synthroid] 75 mcg Tablet 75 mcg PO PM oxycodone 5 mg Capsule 5 mg PO TID omeprazole magnesium [Prilosec OTC] 20 mg Tablet,Delayed Release (Dr/Ec) 20 mg PO QAM calcium carbonate-vitamin D3 500 mg-3.125 mcg (125 unit) Tablet 1 tab PO DAILY ibuprofen 200 mg Capsule 200 mg PO Q6H PRN (Reason: Pain) Discharge Orders: Discharge Order (Routine); Ordered 08/19/23 Ordered By: George Dalal Admission Data Admit Date/Time: 08/16/23 09:46 Attending Provider: George Dalal Admit Provider: George Dalal Primary Care Provider: George Solorzano Other Providers: Sandra Riggs
--- NOTE | 2023-08-19 10:49 | Communication Note ---
Date of Service: August 19, 2023 Patient was gone before I was able to see. Hence no billing submitted.
== END 2023-08-19 09:57 | disposition home or self-care (01) | DRG 454 ==
LOC: ASU 05:40 → 3E 09:46